=== PATIENT | female | born 1955 | race Caucasian/White ===

== ENCOUNTER 2018-07-03 18:55 | Emergency (ER) | payer MEDICARE, OTHER ==
[~2018-07-03] VITALS: Ht 161.3 cm; Wt 65.8 kg
--- NOTE | 2018-07-03 21:59 | RAD ---
CT Head W/O Contrast: History: fell on face, neck pain, no prior Comparison: none Axial images were obtained without contrast. The romeo and white matter appears normal and symmetrical for the patients age. There is no mass effect, extraaxial fluid collections or hydrocephalus. There is no gross bleed. There is no focal loss of romeo-white matter distinction to suggest acute ischemia, i.e. stroke. The benign-appearing lytic lesion in the skull base posterior to the right of midline is again seen. Impression: No acute findings. End impression CT maxillofacial without contrast History: Pain status post fall Axial helical images of the face were obtained without contrast. Axial, sagittal and coronal reconstruction was performed. There is a fracture through the anterior superior nasal septum with displacement of the left. The paranasal sinuses are clear. There is fractures through the nasal ala bilaterally which are minimally displaced. There is a minimally displaced fracture through the nasal bridge. The orbits appear intact. Impression: Acute traumatic fractures of the nasal septum and nasal ala and nasal bridge. End impression CT C-Spine without contrast: Clinical History: fell on face, neck pain, no prior Technique: Axial helical images of the cervical spine were obtained without contrast, axial coronal and sagittal reconstruction was performed. Findings: There is no loss of vertebral body stature. There is no prevertebral soft tissue swelling. The vertebral bodies are well aligned. The C1-C2 relationship is normal. The visualized osseous structures appear normal. There is straightening of the normal cervical lordosis which can be positional or can be secondary to muscle spasm. Evaluation of the central canal is limited without contrast. Impression: No acute findings. Clinical correlation suggested. PQRS Compliance Statement: One or more of the following individualized dose reduction techniques were utilized for this examination: 1. Automated exposure control 2. Adjustment of the mA and/or kV according to patient size 3. Use of iterative reconstruction technique Electronically signed by: Ruslan Ramirez III, MD (07/03/2018 9:55 PM) [facility]
[2018-07-03] MEDS ORDERED: ONDANSETRON ODT 4 MG TAB.RAPDIS. PO ONE (22:00)
[2018-07-03] MEDS ORDERED: HYDROcodone/APAP 5/325MG 1 TAB TABLET PO ONE (22:00)
[2018-07-03] MEDS ORDERED: HYDR-2758 PO (23:45)
[2018-07-03] MEDS ORDERED: SODI30SP NS (23:45)
--- NOTE | 2018-07-03 23:46 | PHYS DOC ---
Past Medical History Past Medical History: Diverticulitis, Other Additional Past Medical Histor: osteopenia Past Surgical History: Other Additional Past Surgical Histo: LEFT BREAST BIOPSY Alcohol Use: Occasionally Drug Use: None Adult General Chief Complaint Chief Complaint: MECHANICAL FALL HPI HPI Patient is a 62 year old [f__sex] who presents with [] Review of Systems Review of Systems Constitutional: Denies fever or chills [] Eyes: Denies change in visual acuity, redness, or eye pain [] HENT: Denies nasal congestion or sore throat [] Respiratory: Denies cough or shortness of breath [] Cardiovascular: No additional information not addressed in HPI [] GI: Denies abdominal pain, nausea, vomiting, bloody stools or diarrhea [] : Denies dysuria or hematuria [] Musculoskeletal: Denies back pain or joint pain [] Integument: Denies rash or skin lesions [] Neurologic: Denies headache, focal weakness or sensory changes [] Endocrine: Denies polyuria or polydipsia [] All other systems were reviewed and found to be within normal limits, except as documented in this note. Current Medications Current Medications Current Medications Medications (Trade) Dose Ordered Sig/Zay Start Time Stop Time Status Last Admin Dose Admin Acetaminophen/ Hydrocodone Bitart (Lortab 5/325) 1 tab 1X ONCE 07/03/18 22:00 07/03/18 22:01 DC 07/03/18 21:58 1 TAB Ondansetron HCl (Zofran Odt) 4 mg 1X ONCE 07/03/18 22:00 07/03/18 22:01 DC 07/03/18 21:58 4 MG Allergies Allergies Allergies Coded Allergies Type Severity Reaction Last Updated Verified Penicillins Allergy Intermediate 12/29/14 No Physical Exam Physical Exam Constitutional: Well developed, well nourished, no acute distress, non-toxic appearance. [] HENT: Normocephalic, atraumatic, bilateral external ears normal, oropharynx moist, no oral exudates, nose normal. [] Eyes: PERRLA, EOMI, conjunctiva normal, no discharge. [] Neck: Normal range of motion, no tenderness, supple, no stridor. [] Cardiovascular:Heart rate regular rhythm, no murmur [] Lungs & Thorax: Bilateral breath sounds clear to auscultation [] Abdomen: Bowel sounds normal, soft, no tenderness, no masses, no pulsatile masses. [] Skin: Warm, dry, no erythema, no rash. [] Back: No tenderness, no CVA tenderness. [] Extremities: No tenderness, no cyanosis, no clubbing, ROM intact, no edema. [] Neurologic: Alert and oriented X 3, normal motor function, normal sensory function, no focal deficits noted. [] Psychologic: Affect normal, judgement normal, mood normal. [] Current Patient Data Vital Signs Vital Signs Date Time Temp Pulse Resp B/P (MAP) Pulse Ox O2 Delivery O2 Flow Rate FiO2 07/03/18 21:58 16 99 Room Air 07/03/18 20:38 98.1 80 128/59 (82) 98.1 EKG EKG [] Radiology/Procedures Radiology/Procedures [] Course & Med Decision Making Course & Med Decision Making Pertinent Labs and Imaging studies reviewed. (See chart for details) [] Dragon Disclaimer Dragon Disclaimer This electronic medical record was generated, in whole or in part, using a voice recognition dictation system. Departure Departure Impression: Primary Impression: Nasal septum fracture Additional Impressions: Nasal bone fx-open Fall Neck pain Disposition: HOME, SELF-CARE Condition: STABLE Referrals: AVELINO NUÑEZ Jr, MD (PCP) RADHA TEMPLETON MD Patient Instructions: Cervical Sprain, [id number], Nasal Fracture, Easy-to- Read Additional Instructions: Fill the prescriptions and take as directed. Follow up with Dr. Radha Templeton ENT for further treatment of your nasal fracture. Do not blow or stick things up your nose. Ice to sore areas as needed. Return to the ER if your symptoms worsen. Scripts Levofloxacin (LEVAQUIN) 500 Mg Tablet 1 TAB PO DAILY, #10 TAB 0 Refills Prov: TOBY SWAN APRN 07/03/18 Sodium Chloride (SALINE NASAL SPRAY) 30 Ml [place] 1-2 SPRAY NS Q2HR for 7 Days, #30 ML 0 Refills Prov: TOBY SWAN APRN 07/03/18 Hydrocodone Bit/Acetaminophen (HYDROCODONE-APAP 5-325 ) 1 Each Tablet 1 TAB PO PRN Q6HRS PRN for PAIN for 5 Days, #20 TAB 0 Refills Prov: TOBY SWAN APRN 07/03/18 Problem Qualifiers Primary Impression: Nasal septum fracture Encounter type: initial encounter Fracture type: open Qualified Codes: S02.2XXB - Fracture of nasal bones, initial encounter for open fracture Additional Impressions: Nasal bone fx-open Encounter type: initial encounter Qualified Codes: S02.2XXB - Fracture of nasal bones, initial encounter for open fracture Fall Encounter type: initial encounter Qualified Codes: W19.XXXA - Unspecified fall, initial encounter TOBY SWAN [employer] Jul 03, 2018 23:46
[2018-07-03] MEDS ORDERED: LEVO500T59 PO (23:54)
[2018-07-04] MEDS ORDERED: DIPHTH,PERTUSS(ACELL),TET TOX 0.5 ML DISP.SYRIN. VAX IM ONE (00:15)
[2018-07-04 00:19] VITALS: BP 106/56
== END 2018-07-04 00:26 | disposition home or self-care (01) ==
LOC: ER 18:55
DX: S02.2XXB Fracture of nasal bones, initial encounter for open fracture (principal); M54.2 Cervicalgia; R51 Headache; Z88.0 Allergy status to penicillin; W01.0XXA Fall on same level from slipping, tripping and stumbling without subsequent striking against object, initial encounter; Y93.89 Activity, other specified; Y92.89 Other specified places as the place of occurrence of the external cause; Y99.8 Other external cause status
CPT/HCPCS: 70450; 70486; 72125; 90471; 90715; 99284; Q0162